=== PATIENT | female | born 1950 | race Caucasian/White ===

== ENCOUNTER → 2021-06-11 | Outpatient (CLI) | payer MEDICARE, MEDICAID ==
--- NOTE | 2021-06-11 15:26 | KCIC ---
EXAMINATION: Magnetic resonance imaging (MRI) of the brain and brainstem without contrast 06/11/2021 2: 00 PM HISTORY: Memory loss. Progressing memory changes and dizziness TECHNIQUE: Multiplanar multi-weighted MRI of the brain and brainstem was performed without intravenou s contrast using the general brain protocol. COMPARISON: None available. FINDINGS: The scalp and calvarium are normal. The superior sagittal sinus demonstrates normal venous flow. The corpus callosum is normal in shape and signal intensity. The posterior fossa is unremarkable. The p ituitary and sella are normal. The brainstem and craniocervical junction are unremarkable. There are T2/FLAIR signal hyperintense foci in the periventricular and subcortical white matter most suggestiv e of mild chronic small vessel ischemic changes. Diffusion weighted images reveal no hyperintensities to suggest acute cerebral infarction. The suscep tibility weighted sequences reveal no evidence of acute or chronic hemorrhage. The ventricles are nor mal in size and position without evidence of hydrocephalus. The paranasal sinuses are normal. The visualized portions of the mastoids are unremarkable. The orbi ts appear normal. Normal flow voids are demonstrated in the carotid arteries and basilar artery. IMPRESSION: 1. No evidence for acute or subacute ischemia. 2. There are T2/FLAIR signal hyperintense foci in the periventricular and subcortical white matter mo st suggestive of mild chronic small vessel ischemic changes. Electronically signed by: Izzy Minor MD (06/11/2021 3:24 PM) [id number]
--- NOTE | 2021-06-11 17:54 | KCIC ---
2-D and 3-D mammogram, digital breast tomography, Bilateral History: Routine screening Technique: Bilateral 2-D and 3d digital tomographic views were obtained. CAD - computer aided detec tion was utilized. Comparison: None available. The patient's last mammograms were performed many years ago. Findings: Breast Tissue Density B : The breast tissue is composed of mixed fatty and fibroglandular tissue. There are no suspicious masses, calcifications or areas of architectural distortion. Impression: No evidence of malignancy. Assessment: BI-RADS Category 1: Negative. Recommendation: Routine screening mammograms. The patient will receive a letter with the results in the mail. Patient information will be entered i nto the mammography reminder system with target recall date for her next mammogram. A reminder letter will be generated. Electronically signed by: Sariah Hudson MD (06/11/2021 5:52 PM) [id number]
--- NOTE | 2021-06-12 09:08 | KCIC ---
INDICATION: Reason: MEMORY LOSS; SYNCOPE / Spl. Instructions: / History: COMPARISON: None. TECHNIQUE: Color, grayscale and doppler ultrasound images obtained of the carotid system bilaterally. Percent stenosis is estimated using criteria that correlates with NASCET methodology. FINDINGS: Peak systolic velocities are as follows in cm/s: Right Carotid System: CCA: 69 ICA: 86 ICA/CCA Ratio 0.8 Left Carotid System: CCA: 73 ICA: 95 ICA/CCA Ratio 1.2 Vertebral arteries are antegrade bilaterally. Plaque is seen scattered throughout the carotid vasculature bilaterally. IMPRESSION: * No hemodynamically significant stenosis of the internal carotid arteries bilaterally. Electronically signed by: Adrian Ramirez MD (06/12/2021 9:06 AM) [id number]
== END ==
LOC: KCIC MRI 09:30
PROVIDERS: ATTEND Family Medicine
DX: Z12.31 Encounter for screening mammogram for malignant neoplasm of breast (principal); R55 Syncope and collapse; R41.3 Other amnesia
CPT/HCPCS: 70551; 77063; 77067; 93880

== ENCOUNTER → 2021-10-24 | Outpatient (CLI) | payer MEDICARE, MEDICAID ==
[~2021-10-24] MED LIST: BARIUM SULFATE 340 GM SUSPENSION. PO ONE; BARIUM SULFATE 40% (APPLE) 148 GM PWD. PO ONE; BARIUM SULFATE 60% 355 ML SUSP PO ONE; BARIUM SULFATE 700 MG TABLET PO ONE; SIMETHICONE/SOD BICARB/CITRIC ACID PACKET. PO ONE
--- NOTE | 2021-10-24 14:25 | RAD ---
DG BARIUM SWALLOW History:Reason: DYSPHAGIA / Spl. Instructions: / History: Comparison studies: None. Technique: Esophagram was performed utilizing single contrast upright examination in the standing pos ition. Patient unable to be be positioned prone and perform swallowing. Findings: Contrast readily opacifies and traverses the esophagus into the stomach. No esophageal dive rticulum. No evidence of aspiration during the examination. Tablet passed promptly to the stomach. Fluoroscopic time: Less than 2 minutes. Fluoroscopic images: 5 fluoroscopic image saves. IMPRESSION: 1. No evidence of esophageal stricture or obstruction. Electronically signed by: Levi De Jesus DO (10/24/2021 2:23 PM) [id number]
--- NOTE | 2021-10-24 14:26 | RAD ---
DG VIDEO SWALLOW STUDY Reason for Examination: Reason: DYSPHAGIA, flouro time 1.2 / Spl. Instructions: / History: With the patient in the lateral projection, using video observation and recording, the patient was as ked to swallow barium liquid, barium impregnated pudding, and chew and swallow solid consistency. Transient penetration with multiple swallows of thin consistency. No aspiration. Interpretation (personally supervised): Total fluoroscopy time was 1.2 minutes Fluoroscopic spot images: 1 Impression: 1. Transient penetration with thin consistency. No aspiration. Please refer to speech pathology notes for further details. Electronically signed by: Levi De Jesus DO (10/24/2021 2:23 PM) [id number]
== END ==
LOC: RAD 11:53
PROVIDERS: ATTEND Physician Assistant Medical
DX: R13.10 Dysphagia, unspecified (principal)
CPT/HCPCS: 74220; 74230; 92611-GN